=== PATIENT | female | born 1995 | race Caucasian/White ===

== ENCOUNTER → 2023-03-25 07:59 | Outpatient (REF) | payer OTHER, SELFPAY | LOC: WDC 07:59 | PROVIDERS: ATTENDING PHYSICIAN Obstetrics & Gynecology; FAMILY PHYSICIAN Family Medicine | DX: R92.8 Other abnormal and inconclusive findings on diagnostic imaging of breast (principal) | CPT/HCPCS: 76642 ==

== ENCOUNTER → 2023-09-25 13:28 | Outpatient (REF) | payer OTHER, SELFPAY | LOC: WDC 13:28 | PROVIDERS: ATTENDING PHYSICIAN Obstetrics & Gynecology | DX: R92.8 Other abnormal and inconclusive findings on diagnostic imaging of breast (principal) | CPT/HCPCS: 76642 ==